=== PATIENT | female | born 1955 | race Caucasian/White ===

== ENCOUNTER 2021-06-30 07:24 | Day surgery (SDC) | payer BC ==
[2021-06-30] MEDS ORDERED: Midazolam 1 MG/ML 2 ML SDV ONE (07:31)
[2021-06-30] MEDS ORDERED: fentaNYL 100 MCG/2 ML SDV ONE (07:31)
[2021-06-30] MEDS ORDERED: Propofol 200 MG/20 ML SDV ONE (07:31)
[2021-06-30] MEDS ORDERED: Sodium Chloride 0.9% 1,000 ML IV SCH (08:00)
[2021-06-30 10:14] VITALS: BP 123/72; PULSE 52
--- NOTE | 2021-06-30 10:28 | OR ---
DATE OF PROCEDURE: 06/30/2021 SURGEON: Maximo Solomon MD PROCEDURE: Colonoscopy. FINDINGS: 1. Transverse colon polyp, approximately 5 mm, completely removed using cold biopsy forceps. 2. Diverticulosis, mild, mostly limited to sigmoid colon without evidence of diverticulitis or bleeding. PREOPERATIVE DIAGNOSIS: Screening colonoscopy. POSTOPERATIVE DIAGNOSIS: Screening colonoscopy. RISKS: Risks, benefits, alternatives, and limitations including, but not limited to infection, bleeding, perforation, false positives, false negatives were explained to the patient who wished to proceed. PROCEDURE IN DETAIL: The patient was placed in left lateral decubitus position. Digital rectal exam was performed without abnormality. Scope was introduced and advanced atraumatically to the ileocecal valve. A photo was taken of this. Scope was brought back to the ascending, transverse, descending colon and retroflexed. No evidence of old or new blood. No masses. No polyps. No abnormalities on retroflexion. The diverticulosis was described as mild, limited to sigmoid colon without evidence of diverticulitis or bleeding. Greater than 8 minutes was spent removing the scope. The patient tolerated the procedure well. Maximo Solomon MD /[id number]
== END 2021-06-30 10:50 | disposition home or self-care (01) ==
LOC: JP.SDS 07:24
PROVIDERS: ATTEND Surgery
DX: Z12.11 Encounter for screening for malignant neoplasm of colon (principal); D12.3 Benign neoplasm of transverse colon; K57.30 Diverticulosis of large intestine without perforation or abscess without bleeding
CPT/HCPCS: 45380; J2250; J2704; J3010; J7030